=== PATIENT | female | born 1990 | race American Indian/Alaskan Native ===

== ENCOUNTER 2017-03-28 11:53 | Emergency (ER) | payer SELFPAY ==
--- NOTE | 2017-03-28 12:18 | Emergency Department Report ---
Chief Complaint: Urogenital-Female Stated Complaint: UTI Time Seen by Provider: 03/28/17 12:15 - HPI History of Present Illness: seen so sandeep mclean on bactrim dysuria r flank pain worse no vag bleed or dc sex active ensure no n/v/d mild r flank tenderness vss no fever non ill appearing also took diflucan - Exam Vital Signs: Vital Signs 03/28/17 12:12 Temperature 97.8 F Pulse Rate 88 Respiratory 16 Rate Blood Pressure 122/78 O2 Sat by Pulse 98 Oximetry MSE screening note: Focused history and physical exam performed. Due to findings the following was ordered: ED Disposition for MSE Condition: Stable
--- NOTE | 2017-03-28 14:23 | Emergency Department Report ---
ED Abdominal Pain HPI - General Chief Complaint: Urogenital-Female Stated Complaint: UTI Time Seen by Provider: 03/28/17 13:46 Source: patient Mode of arrival: Ambulatory Limitations: No Limitations - History of Present Illness Initial Comments: This is a 26-year-old female well-nourished with nontoxic or ill in appearance that presents with symptoms of urinary tract infection. Patient stated was diagnosed at [facility] on Tuesday for UTI and was given Bactrim by mouth for 5 days and Diflucan 1 dose. She states she is still complaining of pelvic pain. Patient denies new sexual partner, discharge, bleeding, odor, fever, nausea vomiting, abdominal pain, chest pain, shortness of breath. Patient states has symptoms of unable to empty bladder and pain while urinating. Patient denies back pain. Patient states after urinating she still feels full in her bladder. Patient also states was at [facility] for gonorrhea chlamydia which was negative. Patient denies any allergies or past medical history. Patient described pain as aching and stabbing with a level of 10/10. Patient stated does not have a corporate controller or primary care doctor due to no insurance. MD Complaint: other (pelvic pain) -: Gradual, days(s) (6) Radiation: none Migration to: no migration Severity: moderate Severity scale (0 -10): 10 Quality: stabbing, aching Consistency: constant Improves With: nothing Worsens With: nothing Associated Symptoms: denies other symptoms. denies: nausea, vomiting, diarrhea , fever, chills, constipation, dysuria, hematemesis, hematochezia, melena, hematuria, anorexia, syncope - Related Data Previous Rx's Medication Instructions Recorded Last Taken Type Levofloxacin [Levaquin TAB] 750 mg PO QDAY 5 Days 03/28/17 Unknown Rx Allergies Allergy/AdvReac Type Severity Reaction Status Date / Time No Known Allergies Allergy Unverified 03/28/17 12:12 ED Review of Systems ROS: Stated complaint: UTI Other details as noted in HPI Constitutional: denies: chills, fever Eyes: denies: eye pain, eye discharge, vision change ENT: denies: ear pain, throat pain Respiratory: denies: cough, shortness of breath, wheezing Cardiovascular: denies: chest pain, palpitations Endocrine: no symptoms reported Gastrointestinal: denies: abdominal pain, nausea, diarrhea Genitourinary: denies: urgency, dysuria, discharge Musculoskeletal: denies: back pain, joint swelling, arthralgia Skin: denies: rash, lesions Neurological: denies: headache, weakness, paresthesias Psychiatric: denies: anxiety, depression Hematological/Lymphatic: denies: easy bleeding, easy bruising ED Past Medical Hx - Past Medical History Previous Medical History?: No - Surgical History Past Surgical History?: No - Social History Smoking Status: Current Some Day Smoker Substance Use Type: Alcohol - Medications Home Medications: Home Medications Medication Instructions Recorded Confirmed Last Taken Type Levofloxacin [Levaquin TAB] 750 mg PO QDAY 5 Days 03/28/17 Unknown Rx ED Physical Exam - General Limitations: No Limitations General appearance: alert, in no apparent distress - Head Head exam: Present: atraumatic, normocephalic - Eye Eye exam: Present: normal appearance, PERRL, EOMI - ENT ENT exam: Present: normal exam, normal orophraynx, mucous membranes moist, TM's normal bilaterally, normal external ear exam - Neck Neck exam: Present: normal inspection, full ROM. Absent: tenderness, meningismus, lymphadenopathy - Respiratory Respiratory exam: Present: normal lung sounds bilaterally. Absent: respiratory distress, wheezes, rales, rhonchi, stridor - Cardiovascular Cardiovascular Exam: Present: regular rate, normal rhythm. Absent: systolic murmur, diastolic murmur, rubs, gallop - GI/Abdominal GI/Abdominal exam: Present: soft, tenderness (left pelvic ), normal bowel sounds. Absent: distended, guarding, rebound, rigid, diminished bowel sounds, hyperactive bowel sounds, hypoactive bowel sounds, organomegaly, mass, bruit, pulsatile mass, hernia, other (Benton sign or McBurney's point) - Rectal Rectal exam: Present: normal inspection - External exam: Present: normal external exam. Absent: erythema, swelling, lesions, lacerations, ecchymosis, bleeding Speculum exam: Present: normal speculum exam, other (electronic security specialist Deirdre ALAMO present during exam). Absent: erythema, vaginal discharge, cervical discharge, vaginal bleeding, foreign body, tissue, laceration Bi-manual exam: Present: normal bi-manual exam, other (electronic security specialist Deirdre RN present at time of exam). Absent: cervical motion tendernes, adnexal tenderness , adnexal mass, uterine enlargement, uterine tenderness - Extremities Exam Extremities exam: Present: normal inspection, full ROM, normal capillary refill. Absent: tenderness, pedal edema, joint swelling, calf tenderness - Back Exam Back exam: Present: normal inspection, full ROM. Absent: tenderness, CVA tenderness (R), CVA tenderness (L) - Neurological Exam Neurological exam: Present: alert, oriented X3, CN II-XII intact, normal gait - Psychiatric Psychiatric exam: Present: normal affect, normal mood - Skin Skin exam: Present: warm, dry, intact, normal color. Absent: rash ED Course Vital Signs 03/28/17 12:12 Temperature 97.8 F Pulse Rate 88 Respiratory 16 Rate Blood Pressure 122/78 O2 Sat by Pulse 98 Oximetry - Reevaluation(s) Reevaluation #1: 03/28/17 16:41 Dr. Rojo was consulted about CT results and agrees to d/c plan of care. ED Medical Decision Making - Lab Data Result diagrams: 03/28/17 14:30 03/28/17 14:30 - Medical Decision Making Ed course: This is a 26-year-old female that presents with urinary tract infection. 1- abdomen physical exam and urinalysis my clinical suspicion this patient has a urinary tract infection. 2- CT scan of the abdomen/pelvis with contrast was obtained ER. Result; no acute CT of the mallet with various incidental findings such as 2.570 left ovarian cyst measuring 27 HU. Few small pelvic phleboliths. A 2.31.1 cm left iliac hypodense fairly well demarcated lesion with intrininisc septations noted. 3- patient was instructed to follow-up with her corporate controller/primary care doctor in 3-5 days or if symptoms worsen to prevent emergency room. 4- patient received levofloxacin 750 mg for 5 days at the time of discharge. 5- at the time of discharge the patient does not seem toxic or ill in appearance. No signs any acute distress noted. Patient agrees with discharge treatment plan of care. No further questions noted by the patient. 6- Dr. Rojo was consulted and agrees to plan of care with a follow-up with a corporate controller. Critical care attestation.: If time is entered above; I have spent that time in minutes in the direct care of this critically ill patient, excluding procedure time. ED Disposition Clinical Impression: Urinary tract infection Qualifiers: Urinary tract infection type: site unspecified Hematuria presence: without hematuria Qualified Code(s): N39.0 - Urinary tract infection, site not specified Disposition: DISCHARGED TO HOME OR SELFCARE Is pt being admited?: No Does the pt Need Aspirin: No Condition: Stable Instructions: Urinary Tract Infection in Women (ED) Additional Instructions: Take full course of antibiotic as prescribed. Follow-up with her corporate controller/primary care doctor in 3-5 days. If symptoms worsen before peds emergency room. Prescriptions: Levofloxacin [Levaquin TAB] 750 mg PO QDAY 5 Days Referrals: ALY CROSS MD [Primary Care Provider] - 3-5 Days WILBERT RUTHERFORD MD [Referring] - 3-5 Days TEZ STARR MD [Staff Physician] - 3-5 Days [facility] [Outside] - 3-5 Days [facility] [Outside] - 3-5 Days Forms: Work/School Release Form(ED)
[2017-03-28 14:43] LABS: Bilirubin,Urine NEG (Negative); Blood,Urine SM (Negative); Ketones,Urine NEG (Negative); Leukocyte Esterase,Urine TR (Negative); Mucus,Urine FEW /HPF; Nitrite,Urine NEG (Negative); Urobilinogen,Urine < 2.0 mg/dL (<2.0)
[2017-03-28 14:53] LABS: Eosinophils % (Auto) 0.9 % (0.0-4.3); Hematocrit 44.7 % (30.3-42.9); Hemoglobin 14.6 gm/dl (10.1-14.3); Mean Corpuscular HGB Conc 33 % (30-34); Mean Corpuscular Hemoglobin 28 pg (28-32); Mean Corpuscular Volume 85 fl (79-97); Platelet Count 255 K/mm3 (140-440); Red Blood Count 5.26 M/mm3 (3.65-5.03); Red Cell Distribution Width 13.6 % (13.2-15.2); White Blood Count 5.9 K/mm3 (4.5-11.0)
[2017-03-28 15:09] LABS: Anion Gap 19 mmol/L; BUN/Creatinine Ratio 21.11; Blood Urea Nitrogen 19 mg/dL (7-17); Calcium 9.7 mg/dL (8.4-10.2); Carbon Dioxide 25 mmol/L (22-30); Chloride 97.9 mmol/L (98-107); Glucose 82 mg/dL (65-100); Sodium 138 mmol/L (137-145)
--- NOTE | 2017-03-28 15:57 | Cat Scan Report ---
CT ABDOMEN AND PELVIS WITH CONTRAST INDICATION: Abdominal/pelvic pain. COMPARISON: None similar at this institution. FINDINGS: Abdomen and pelvis CT performed following intravenous administration of 100 cc of Omnipaque 300. LUNG BASES: Top normal heart size. Slight nonspecific distal esophageal prominence. ABDOMEN: Liver, spleen, gallbladder, pancreas, adrenals, nonaneurysmal abdominal aorta, IVC and kidneys appear within normal limits. No ascites or size significant adenopathy. Opacified GI tract evaluation limited, though grossly nonobstructive. Normal appendix. Ascending and transverse colon stool/possible constipation. PELVIS: Bilateral Essure devices. Approximately 2.5 cm left ovarian cyst measuring 27 HU. Few small pelvic phleboliths. Otherwise unremarkable uterus and urinary bladder. Rectosigmoid stool. No free fluid or significant adenopathy. A 2.3 x 1.1 cm left iliac hypodense fairly well demarcated lesion with intrinsic septations noted. CONCLUSION: No acute CT abnormality with various incidental findings, as above. Thank you for the opportunity to participate in this patient's care.
[2017-03-28 16:47] VITALS: BP 120/72
== END 2017-03-28 16:51 | disposition home or self-care (01) ==
LOC: ED 11:53
DX: N39.0 Urinary tract infection, site not specified (principal); F17.200 Nicotine dependence, unspecified, uncomplicated
CPT/HCPCS: 36415; 74177; 80048; 81001; 84702; 85025; 87210; 87591; 99284; Q9967